=== PATIENT | male | born 1970 ===

== ENCOUNTER 2025-05-13 09:06 | Outpatient (CLI) | payer MEDICARE ==
[2025-05-13] VITALS (12 sets, daily range): BP systolic 64–118; BP diastolic 28–65; PULSE 55–78
--- NOTE | 2025-05-23 08:59 | CARDIOLOGY REPORT ---
DATE OF SERVICE: 05/13/2025 DICTATING PHYSICIAN: Anshu Lopez MD TILT TABLE TEST DATE OF STUDY: 05/13/2021 NAME OF PROCEDURE: Tilt Table Test. DESCRIPTION OF PROCEDURE: The patient underwent tilt-table testing per protocol. Initial blood pressure was 99/62 mmHg with a heart rate of 61 beats per minute. Approximately 7-8 minutes into the test, the patient became significantly hypotensive with a blood pressure of 64/34 mmHg and a heart rate of 71 beats per minute. The patient complained of dizziness, lightheadedness and about to pass out. He then had a syncopal episode. He was placed supine and recovered. IMPRESSION: Positive head up tilt table test. The patient's blood pressure dropped from 99/62 mmHg with a heart rate of 61 beats per minute down to 64/34 mmHg with a heart rate of 71 beats per minute. Anshu Lopez MD TID: [id number] RECEIPT: [id number] BRITNEY/DEENA
== END 2025-05-13 23:59 | disposition home or self-care (01) ==
LOC: CARD DIAG 09:06
PROVIDERS: ATTEND Internal Medicine Interventional Cardiology
DX: R42 Dizziness and giddiness (principal)
CPT/HCPCS: 93660